=== PATIENT | female | born 1960 | race Caucasian/White ===

== ENCOUNTER 2019-03-06 08:08 | Observation (INO) ==
[2019-03-06 08:14] VITALS: BMI 25.7
--- NOTE | 2019-03-06 08:22 | DR.CP ---
HPI Time Seen Time Seen by Provider: 03/06/19 08:18 PCP Primary Care Physician: RACQUEL HPI Comment HPI Comment: Left sided CP x 24 hrs, gradual onset while at rest, ? exertional component, a/w palpitations and diaphoresis sharp in quality, radiating to jaw yesterday. Non pleuritic. ? worse w/ supine body position. No relief w/ motrin at home. + SOB No n/v. Complaint Chief Complaint:: PT. C/O CHEST PAIN THAT BEGAN YESTERDAY. PAIN HAS BEEN CONSTANT. PT HAS BEEN TAKING MOTRIN AND OTHER MEDICATION TO TRY AND GET RELIEF. PT. DESCRIBES THE PAIN SHARP AND YESTERDAY THE PAIN RADIATED TO HER LEFT JAW. Source History Provided: Patient Mode of Arrival Mode of Arrival: Ambulatory Timing Onset of Chief Complaint: 03/05/19 Came on: Gradually Pain: Present Now Duration Duration: Since Onset How lon Duration: Days Location Location of Chest Pain: Left Chest Pain Radiation Location: Left Jaw Context Onset: At rest Cardiac Risk Factors: Hyperlipidemia; denies HTN, Diabetes and Cocaine PE Risk Factors: None History of: denies [place], Angina and DVT/PE Prehospital Care: Other (motrin) Quality Quality: Sharp Severity Severity: Moderate Modifying Factors Worsens: Position; denies Exertion, Breathing and Movement Impoves: Nothing Associated Signs and Symptoms Associated Signs and Symptoms: Shortness of Breath, Palpitations and Diaphoresis; denies Abdominal Pain, Nausea/Vomiting and Calf Pain/Swelling PMH PMH Past Medical History: Yes Past Medical History: Dyslipidemia Past Surgical History: Yes Surgical History: Hysterectomy Past Surgical History Comment: PARTIAL HYSTERECTOMY Family History History of Family Medical Conditions: Yes Family Medical History: Coronary Artery Disease Social History Does patient currently use any type of tobacco product: No Have you used tobacco products in the last 12 months: No Type of Tobacco Use: None Does any household member use tobacco: No Alcohol Use: None Do you use any recreational Drugs:: No Lives With: Spouse Lives Where: Home infectious screening In the last 2 months have you had wt loss of >10#?: NO Have you had fever, night sweats or hemotysis?: No Have you traveled outside the country in the last 6 months?: No Isolation: Standard ROS Review of Systems Constitutional: No Symptoms Reported Eyes: No Symptoms Reported ENTM: No Symptoms Reported Respiratoy: Short of Breath; negative Productive Cough, Dry Cough and Orthopnea Cardiovascular: Chest Pain, Palpitations and Other (diaphoresis ); negative Marvel a and Syncope Gastrointestinal/Abdominal: No Symptoms Reported Genitourinary: No Symptoms Reported Neurological: No Symptoms Reported Musculoskeletal: No Symptoms Reported Integumentary: No Symptoms Reported Hematologic/Lymphatic: No Symptoms Reported Endocrine: No Symptoms Reported Psychiatric: No Symptoms Reported All Other Systems: Reviewed and Negative PE Vitals Vitals: Temperature 97.7 F Pulse Rate 74 Respiratory Rate 18 Blood Pressure 116/75 O2 Sat by Pulse Oximetry 97 General Limitations: No Limitations General Appearance: Alert and In No Apparent Distress Head Head Exam: Normal Inspection Eyes Eye exam: Normal Appearance ENT ENT Exam: Normal Exam Chest Chest Inspection: Normal Inspection Respiratory Respiratory Exam: Normal Lung Sounds Bilat Cardiovascular Cardiovascular Exam: Regular Rate and Normal Rhythm Pulse: Normal Edema: Normal Abdominal Exam Abdominal Exam: Normal Inspection, Normal Bowel Sounds and Soft Extremities Extremities Exam: Normal Inspection Back Back Exam: Normal Inspection Neurologic Neurological Exam: Alert and Oriented X3 Psychiatric Psychiatric Exam: Normal Affect and Normal Mood Skin Skin Exam: Warm, Dry, Intact and Normal Color MDM Additional Information Additional Information Obtained From: Family Differential Diagnosis Differential Diagnosis: Angina, Aortic Dissection, Chest Wall Pain, CHF, Costochondritis, Myocardial Infarction, Pericarditis, Pneumonia and Pulmonary Embolus COURSE Treatment Treatment: 59 yo CF w/ pmh of hld presents w/ CP x 1 day. ? exertional a/w diaphoresis. EKG obtained demonstrated lateral ST segment depression/ twi. No acute ST segment elevation noted. TNI negative. Loaded w/ asa. CXR wnl. BMPO w/ evidence of enriqueta. Discussed w/ Dr Bhardwaj whom agrees to admit. Education/Counseling Education/Counseling: Patient and Family Educated On: Treatment, Diagnosis, Prognosis and Needs for Follow Up ROR Labs Reviewed Laboratory Results Reviewed?: Yes Result Diagrams: 03/06/19 08:27 03/06/19 08:27 Laboratory: WBC 10.3 X10^3/uL (3.6-10.0) H 03/06/19 08:27 RBC 4.15 X10^6/uL (3.5-5.4) 03/06/19 08:27 Hgb 12.9 g/dL (12.0-16.0) 03/06/19 08:27 Hct 39.0 % (36.0-47.0) 03/06/19: MCV 93.9 fL (80.0-100.0) 03/06/19: MCH 31.1 pg (27.0-34.0) 03/06/19: MCHC 33.2 g/dL (33.0-35.0) 03/06/19: RDW 13.7 % (11.6-16.5) 03/06/19: Plt Count 167 X10^3/uL (150.0-450.0) 03/06/19: MPV 9.5 fL (7.4-11.0) 03/06/19: Neut % (Auto) 81.4 % (42.0-75.0) H 03/06/19: Lymph % (Auto) 8.0 % (21.0-51.0) L 03/06/19: [place] % (Auto) 10.1 % (0.0-13.0) 03/06/19: Eos % (Auto) 0.2 % (0.9-2.9) L 03/06/19: Baso % (Auto) 0.3 % (0.2-1.0) 03/06/19: Neut # (Auto) 8.4 x10^3/uL (2.2-4.8) H 03/06/19: Lymph # (Auto) 0.8 X10^3/uL (1.3-2.9) L 03/06/19: [place] # (Auto) 1.0 x10^3/uL (0.3-0.8) H 03/06/19: Eos # (Auto) 0.0 x10^3/uL (0.0-0.2) 03/06/19: Baso # (Auto) 0.0 X10^3/uL (0.0-0.1) 03/06/19: Absolute Nucleated RBC 0.0 /100WBC 03/06/19: Sodium 135 mmol/L (136-145) L 03/06/19: Corrected Sodium TNP 03/06/19: Potassium 4.0 mmol/L (3.5-5.1) 03/06/19 08:27 Chloride 99 mmol/L (98-107) 03/06/19 08:27 Carbon Dioxide 25.1 mmol/L (21-32) 03/06/19 08:27 BUN 19 mg/dL (7-18) H 03/06/19 08:27 Creatinine 1.44 mg/dL (0.55-1.02) H 03/06/19 08:27 Est GFR (MDRD) Af Amer 48 (>60) L 03/06/19 08:27 Est GFR (MDRD) Non-Af 40 (>60) L 03/06/19 08:27 Glucose 108 mg/dL (65-99) H 03/06/19 08:27 Calcium 8.8 mg/dL (8.5-10.1) 03/06/19 08:27 Troponin I < 0.02 ng/mL (0-1.5) 03/06/19 08:27 XRAY XRAY Interpreted by: Self XRAY Findings: cxr w/o infiltrate, no hemo/ pneumothorax, no cmg EKG [place]: Normal Rhythm: NSR Block: IVCD Hypertrophy: None ST: Nonsp (lateral twi/ st segment depression ) Opioid Opioid Risk Tool Age (Carlitos box if 16-45): No Total: 0 Total Score Risk Category: Low Risk Copyright: [employer] predicting aberrant behaviors Diagnosis Discharge Problem: Chest pain due to CAD, ENRIQUETA (acute kidney injury)
[2019-03-06] MEDS ORDERED: ASPIRIN PO ONE (08:27)
[2019-03-06] MEDS ORDERED: ASPIRIN ONE (08:27)
[2019-03-06 08:40] LABS: BASOPHILS % (AUTO) 0.3 % (0.2-1.0); EOSINOPHILS % (AUTO) 0.2 % (0.9-2.9); HEMOGLOBIN 12.9 g/dL (12.0-16.0); LYMPHOCYTES # (AUTO) 0.8 X10^3/uL (1.3-2.9); MEAN CORPUSCULAR HEMOGLOBIN 31.1 pg (27.0-34.0); MEAN CORPUSCULAR HGB CONC 33.2 g/dL (33.0-35.0); MEAN CORPUSCULAR VOLUME 93.9 fL (80.0-100.0); MEAN PLATELET VOLUME 9.5 fL (7.4-11.0); MONOCYTES % (AUTO) 10.1 % (0.0-13.0); NEUTROPHILS # (AUTO) 8.4 x10^3/uL (2.2-4.8); NEUTROPHILS % (AUTO) 81.4 % (42.0-75.0); PLATELET COUNT 167 X10^3/uL (150.0-450.0); RED BLOOD COUNT 4.15 X10^6/uL (3.5-5.4); RED CELL DISTRIBUTION WIDTH 13.7 % (11.6-16.5); WHITE BLOOD COUNT 10.3 X10^3/uL (3.6-10.0)
[2019-03-06] MEDS ORDERED: MORPHINE SULFATE INJ 4 MG IVP ONE (08:45)
[2019-03-06] MEDS ORDERED: NS 500 ML IV 500 ML IV ONE ×2 (08:45→08:49)
[2019-03-06 08:48] LABS: BLOOD UREA NITROGEN 19 mg/dL (7-18); CALCIUM 8.8 mg/dL (8.5-10.1); CARBON DIOXIDE 25.1 mmol/L (21-32); CHLORIDE 99 mmol/L (98-107); CREATININE 1.44 mg/dL (0.55-1.02); SODIUM 135 mmol/L (136-145); TROPONIN I < 0.02 ng/mL (0-1.5); eGFR NON BLACK RACES 40 (>60)
[2019-03-06] MEDS ORDERED: MORPHINE SULFATE INJ 4 MG ONE (08:50)
--- NOTE | 2019-03-06 08:51 | RAD ---
HISTORYCHEST PAINSTUDYCHEST, PA/LAT ADULTCOMPARISONNo priorsFINDINGSThe trachea is midline. The cardiac silhouette is upper normal. Small focus of atelectasis or infiltrate is present involving the right lung base. This is actually seen on the lateral view.. Remainder of lung sue are clear. No CHF, pleural fluid or pneumothorax is seen. The bony thorax is unremarkable.IMPRESSIONRight basilar focus of atelectasis or infiltrate.Electronically signed by: ELYSIA MARINO (Mar 06, 2019 08:50:44)
[2019-03-06] MEDS ORDERED: NITROSTAT SL PRN (09:24)
[2019-03-06 09:56] LABS: CKMB % 1.9 % (<4); CREATINE KINASE 54 Units/L (26-192); CREATINE KINASE MB < 1.0 ng/mL (0-4.0); TROPONIN I < 0.02 ng/mL (0-1.5)
[2019-03-06] MEDS: NS 1000 ML 1,000 ML IV SCH ×3 (10:47→17:59)
[2019-03-06 12:50] LABS: BILIRUBIN,URINE NEGATIVE (NEGATIVE); BLOOD/HEMOGLOBIN,URINE NEGATIVE (NEGATIVE); GLUCOSE, URINE NEGATIVE (NEGATIVE); KETONES,URINE NEGATIVE (NEGATIVE); LEUKOCYTE ESTERASE ,URINE NEGATIVE (NEGATIVE); NITRITES,URINE NEGATIVE (NEGATIVE); PROTEIN,URINE NEGATIVE (NEGATIVE); UROBILINOGEN,URINE NORMAL (NORMAL)
[2019-03-06 12:51] LABS: APPEARANCE,URINE CLEAR (CLEAR); COLOR,URINE STRAW (YELLOW)
[2019-03-06] MEDS ORDERED: PREVNAR 13 IM ONE (13:00)
[2019-03-06] MEDS ORDERED: AFLURIA II4 or FLUARIX II4 IM ONE (14:00)
[2019-03-06 16:26] LABS: CKMB % 2.3 % (<4); CREATINE KINASE 44 Units/L (26-192); CREATINE KINASE MB < 1.0 ng/mL (0-4.0); TROPONIN I < 0.02 ng/mL (0-1.5)
[2019-03-06] MEDS ORDERED: MORPHINE SULFATE INJ 2 MG INJ IVP PRN (18:18)
[2019-03-06] MEDS ORDERED: MILK OF MAGNESIA PO PRN (21:11)
[2019-03-06] MEDS ORDERED: COLACE CAP 100 MG PO PRN (21:11)
[2019-03-06 22:22] LABS: CKMB % 2.4 % (<4); CREATINE KINASE 42 Units/L (26-192); CREATINE KINASE MB < 1.0 ng/mL (0-4.0); TROPONIN I < 0.02 ng/mL (0-1.5)
[2019-03-07 06:06] LABS: CHOL/HDL RATIO 2.9 (0.0-5.0)
[2019-03-07] MEDS: PROTONIX INJ 40 MG VIAL IVP SCH (08:17)
[2019-03-07 08:50] LABS: BASOPHILS # (AUTO) 0.1 X10^3/uL (0.0-0.1); BASOPHILS % (AUTO) 1.5 % (0.2-1.0); EOSINOPHILS # (AUTO) 0.1 x10^3/uL (0.0-0.2); EOSINOPHILS % (AUTO) 1.6 % (0.9-2.9); HEMOGLOBIN 12.5 g/dL (12.0-16.0); LYMPHOCYTES # (AUTO) 1.4 X10^3/uL (1.3-2.9); LYMPHOCYTES % (AUTO) 17.2 % (21.0-51.0); MEAN CORPUSCULAR HEMOGLOBIN 31.1 pg (27.0-34.0); MEAN CORPUSCULAR HGB CONC 32.9 g/dL (33.0-35.0); MEAN CORPUSCULAR VOLUME 94.7 fL (80.0-100.0); MEAN PLATELET VOLUME 10.5 fL (7.4-11.0); MONOCYTES # (AUTO) 0.7 x10^3/uL (0.3-0.8); MONOCYTES % (AUTO) 9.3 % (0.0-13.0); NEUTROPHILS # (AUTO) 5.6 x10^3/uL (2.2-4.8); NEUTROPHILS % (AUTO) 70.4 % (42.0-75.0); PLATELET COUNT 170 X10^3/uL (150.0-450.0); RED BLOOD COUNT 4.02 X10^6/uL (3.5-5.4); RED CELL DISTRIBUTION WIDTH 13.9 % (11.6-16.5); WHITE BLOOD COUNT 7.9 X10^3/uL (3.6-10.0)
[2019-03-07 08:57] LABS: ALANINE AMINOTRANSFERASE 16 Units/L (12-78); ALBUMIN 2.7 g/dL (3.4-5.0); ALKALINE PHOSPHATASE 95 Units/L (46-116); ASPARTATE AMINO TRANSFERASE 14 Units/L (15-37); BLOOD UREA NITROGEN 9 mg/dL (7-18); CALCIUM 8.5 mg/dL (8.5-10.1); CARBON DIOXIDE 25.9 mmol/L (21-32); CHLORIDE 104 mmol/L (98-107); COR CA(FOR HYPOALB) 9.5 mg/dL (8.5-10.1); CREATININE 0.95 mg/dL (0.55-1.02); SODIUM 140 mmol/L (136-145); eGFR NON BLACK RACES > 60 (>60)
--- NOTE | 2019-03-07 09:00 | DR.H&P ---
H&P - History & Physical for Day of: H&P Date: 03/06/19 - Chief Complaint Chief Complaint: CHEST PAIN, SOB, DIAPHORESIS - History of Present Illness History of Present Illness: IS A 59 YEAR OLD PATIENT OF OURS WHO PRESENTED TO THE ER WITH COMPLAINTS OF LEFT SIDED CHEST PAIN FOR THE PAST 24 HOURS. SHE REPORTS THAT PAIN HAS BEEN CONSTANT AND RADIATES TO THE LEFT JAW. IT IS CHARACTERIZED SHARP AND IS RATED 8/10. ASSOCIATED SYMPTOMS INCLUDE PALPITATIONS, DIAPHORESIS, AND SHORNESS OF BREATH. SHE REPORTS TAKING IBUPROFEN AT HOME WITHOUT IMPROVEMENT IN SYMPTOMS. ON ARRIVAL, VITALS WERE 97.7-76-20-97%-98/53. LABS WERE OBTAINED. ABNORMAL LAB VALUES INCLUDE THE FOLLOWING: WBC 10.3, SODIUM 135, BUN 19, CREATININE 1.44, GLUCOSE 108, HDL 64. CARDIAC ENZYMES WITHIN NORMAL LIMITS. URINALYSIS IS UNREMARKABLE. CHEST XRAY OBTAINED AND REVEALED: RIGHT BASILAR FOCUS OF ATELECTASIS OR INFILTRATE. EKG REVEALED: SINUS RHYTHM WITH HR 71. SHE WAS GIVEN A NORMAL SALINE BOLUS, MORPHINE 4MG IV X 1, ASPIRIN 325MG PO X 1. SHE WAS ADMITTED FOR CHEST PAIN, RULE OUT AMI AND ACUTE KIDNEY INJURY. SHE WAS STARTED ON NORMAL SALINE AT 150ML/HR, PROTONIX 40MG IV DAILY, NITROSTAT 0.4MG IV Q5M PRN, MORPHINE 2-4MG IV Q4H PRN, MOM 30ML Q12H, AND COLACE 200MG PO Q12H. WE WILL FOLLOW UP WITH AM LABS, SERIAL CARDIAC ENZYMES AND EKGS, AND CONTINUE TO MONITOR. - Past Medical History Past Medical History: Dyslipidemia - Past Surgical History Surgical History: SORTER PACKER Surgery - Family History Family Medical History: ID, Coronary Artery Disease - Social History Does patient currently use any type of tobacco product: Yes Have you used tobacco products in the last 12 months: Yes Type of Tobacco Use: Cigarettes How many years tobacco product used: 45 Does any household member use tobacco: Yes Alcohol Use: Occasionally Drug Use: None Prescription drug monitoring program results: PDMP was not reviewed - Medications Home Medications: doxycycline Allergy (Verified 03/06/19 08:15) Penicillins Allergy (Verified 03/06/19 08:15) CONTINUE taking the following medications clonazepam 1 mg PO HS 03/06/19 [History] conjugated estrogens [Premarin] 1.25 mg PO DAILY 03/06/19 [History] meloxicam 15 mg PO DAILY 03/06/19 [History] sertraline 100 mg PO HS 03/06/19 [History] simvastatin 40 mg PO HS 03/06/19 [History] - Review of Systems Constitutional: Weakness Eyes: No Symptoms Reported ENT: No Symptoms Reported Respiratory: See HPI, Shortness of Breath Cardiovascular: Chest Pain, Palpitations Gastrointestinal: No Symptoms Reported Genitourinary: No Symptoms Reported Musculoskeletal: No Symptoms Reported Skin: No Symptoms Reported Neurological: Weakness - Physical Exam Vital Signs: Temperature 98.2 F Pulse Rate [Apical] 80 Pulse Rate 74 Respiratory Rate 20 Blood Pressure [Left Arm] 90/52 Blood Pressure 105/61 O2 Sat by Pulse Oximetry 97 Oriented: Normal Eyes: Normal Ear: Normal Nose: Normal Throat: Normal Respiratory: Diminished Throughout Cardiovascular: Normal. negative: S3, S4, Murmur : Normal Auscultation: Bowel Sounds: Normal Palpation: Normal Tenderness: Normal Skin: Normal Musculoskeletal: Normal Psychiatric: Normal Mood Description: Calm Affect: Normal Speech Pattern: Clear - Assessment/Plan (1) Chest pain, rule out acute myocardial infarction Status: Acute Plan: SERIAL CARDIAC ENZYMES AND EKGS, NITROSTAT PRN, MORPHINE PRN, CONTINUE TO MONITOR (2) ENRIQUETA (acute kidney injury) Status: Acute Plan: NORMAL SALINE AT 150ML/HR, CONTINUE TO MONITOR - Allergies Allergies/Adverse Reactions: Allergies Allergy/AdvReac Type Severity Reaction Status Date / Time doxycycline Allergy Verified 03/06/19 08:15 Penicillins Allergy Verified 03/06/19 08:15
[2019-03-07] MEDS: LOVENOX INJ 40 MG SYR SC SCH (09:49)
--- NOTE | 2019-03-07 10:54 | PCM.PROG ---
Progress Note - Progress Note for Day of Date of Exam: 03/07/19 - Subjective Subjective: WAS ADMITTED FOR CHEST PAIN, RULE OUT ACUTE ID AND ACUTE KIDNEY INJURY. TODAY, SHE IS ALERT AND ORIENTED, LYING IN BED ON MORNING ROUNDS. SHE CONTINUES WITH INTERMITTENT CHEST PAIN, BUT REPORTS SLIGHT IMPROVEMENT SINCE ADMISSION. ON EXAMINATION, HEART IS REGULAR IN RATE AND RHYTHM. BILATERAL LUNGS ARE NOTED WITH DIMINISHED LUNG SOUNDS THROUGHOUT. ABDOMEN IS ROUND, SOFT, AND NON-TENDER WITH NORMAL BOWEL SOUNDS NOTED IN ALL QUADRANTS. HER VITALS THIS MORNING ARE: 98.0-79-20-97%-133/73. LABS WERE OBTAINED. ABNORMAL LAB VALUES INCLUDE THE FOLLOWING: AST 14, ALBUMIN 2.7. CARDIAC ENZYMES WITHIN NORMAL LIMITS. NO CHANGES NOTED TO EKGS. TODAY, WE WILL OBTAIN AN ECHO, CAROTID DOPPLER , AND A CHEST CTA. WE WILL RESUME HER HOME MEDICATIONS AND CONTINUE WITH CURRENT PLAN OF CARE. WE PLAN TO FOLLOW UP WITH AM LABS AND CONTINUE TO MONITOR. - Past Medical Family Social History Past Med/Fam/Surg Hx: No changes since H&P Allergies: Allergies doxycycline Allergy (Verified 03/06/19 08:15) Penicillins Allergy (Verified 03/06/19 08:15) - Review of Systems ROS: No change since H&P - Vital Signs and I&O's Vital Signs: Temperature 98.0 F Pulse Rate [Apical] 79 Pulse Rate 74 Respiratory Rate 20 Blood Pressure [Left Arm] 133/73 Blood Pressure 105/61 O2 Sat by Pulse Oximetry 97 Intake and Output: Intake & Output 03/04/19 03/05/19 03/06/19 03/07/19 11:59 11:59 11:59 11:59 Intake Total 1650 / 1650 Balance 1650 / 1650 - Physical Exam Oriented: Normal Eyes: Normal Ear: Normal Nose: Normal Throat: Normal Respiratory: Diminished Cardiovascular: Normal. negative: S3, S4, Murmur : Normal Auscultation: Bowel Sounds: Normal Palpation: Normal Tenderness: Normal Skin: Normal Musculoskeletal: Normal Psychiatric: Normal Mood Description: Calm Affect: Normal Speech Pattern: Clear - Laboratory and Diagnostics Result Diagrams: 03/07/19 05:24 03/07/19 05:24 Labs: Laboratory WBC 7.9 X10^3/uL (3.6-10.0) 03/07/19 05:24 RBC 4.02 X10^6/uL (3.5-5.4) 03/07/19 05:24 Hgb 12.5 g/dL (12.0-16.0) 03/07/19 05:24 Hct 38.0 % (36.0-47.0) 03/07/19 05:24 MCV 94.7 fL (80.0-100.0) 03/07/19 05:24 MCH 31.1 pg (27.0-34.0) 03/07/19 05:24 MCHC 32.9 g/dL (33.0-35.0) L 03/07/19 05:24 RDW 13.9 % (11.6-16.5) 03/07/19 05:24 Plt Count 170 X10^3/uL (150.0-450.0) 03/07/19 05:24 MPV 10.5 fL (7.4-11.0) 03/07/19 05:24 Neut % (Auto) 70.4 % (42.0-75.0) 03/07/19 05:24 Lymph % (Auto) 17.2 % (21.0-51.0) L 03/07/19 05:24 [place] % (Auto) 9.3 % (0.0-13.0) 03/07/19 05:24 Eos % (Auto) 1.6 % (0.9-2.9) 03/07/19 05:24 Baso % (Auto) 1.5 % (0.2-1.0) H 03/07/19 05:24 Neut # (Auto) 5.6 x10^3/uL (2.2-4.8) H 03/07/19 05:24 Lymph # (Auto) 1.4 X10^3/uL (1.3-2.9) 03/07/19 05:24 [place] # (Auto) 0.7 x10^3/uL (0.3-0.8) 03/07/19 05:24 Eos # (Auto) 0.1 x10^3/uL (0.0-0.2) 03/07/19 05:24 Baso # (Auto) 0.1 X10^3/uL (0.0-0.1) 03/07/19 05:24 Absolute Nucleated RBC 0.0 /100WBC 03/07/19 05:24 Sodium 140 mmol/L (136-145) 03/07/19 05:24 Corrected Sodium TNP 03/07/19 05:24 Potassium 3.6 mmol/L (3.5-5.1) 03/07/19 05:24 Chloride 104 mmol/L (98-107) 03/07/19 05:24 Carbon Dioxide 25.9 mmol/L (21-32) 03/07/19 05:24 BUN 9 mg/dL (7-18) 03/07/19 05:24 Creatinine 0.95 mg/dL (0.55-1.02) 03/07/19 05:24 Est GFR (MDRD) Af Amer > 60 (>60) 03/07/19 05:24 Est GFR (MDRD) Non-Af > 60 (>60) 03/07/19 05:24 Glucose 90 mg/dL (65-99) 03/07/19 05:24 Calcium 8.5 mg/dL (8.5-10.1) 03/07/19 05:24 Corrected Calcium 9.5 mg/dL (8.5-10.1) 03/07/19 05:24 Total Bilirubin 0.20 mg/dL (0.2-1.0) 03/07/19 05:24 AST 14 Units/L (15-37) L 03/07/19 05:24 ALT 16 Units/L (12-78) 03/07/19 05:24 Alkaline Phosphatase 95 Units/L (46-116) 03/07/19 05:24 Creatine Kinase 42 Units/L (26-192) 03/06/19 21:30 CK-MB (CK-2) < 1.0 ng/mL (0-4.0) 03/06/19 21:30 CK/CKMB % Calc 2.4 % (<4) 03/06/19 21:30 Troponin I < 0.02 ng/mL (0-1.5) 03/06/19 21:30 Total Protein 7.0 g/dL (6.4-8.2) 03/07/19 05:24 Albumin 2.7 g/dL (3.4-5.0) L 03/07/19 05:24 Globulin 4.3 g/dL (2.5-4.5) 03/07/19 05:24 Albumin/Globulin Ratio 0.6 Ratio (1.1-2.1) L 03/07/19 05:24 Triglycerides 125 mg/dL (0-150) 03/07/19 05:24 Cholesterol 186 mg/dL (0-200) 03/07/19 05:24 LDL Cholesterol, Calc 97 mg/dL (0-100) 03/07/19 05:24 HDL Cholesterol 64 mg/dL (40-60) H 03/07/19 05:24 Cholesterol/HDL Ratio 2.9 (0.0-5.0) 03/07/19 05:24 Specimen Type Clean catch urine 03/06/19 12:43 Urine Color Straw (YELLOW) 03/06/19 12:43 Urine Appearance Clear (CLEAR) 03/06/19 12:43 Urine pH 5.0 (5.0 - 8.0) 03/06/19 12:43 Ur Specific [place] 1.005 (1.000-1.030) 03/06/19 12:43 Urine Protein Negative (NEGATIVE) 03/06/19 12:43 Urine Glucose (UA) Negative (NEGATIVE) 03/06/19 12:43 Urine Ketones Negative (NEGATIVE) 03/06/19 12:43 Urine Occult Blood Negative (NEGATIVE) 03/06/19 12:43 Urine Nitrite Negative (NEGATIVE) 03/06/19 12:43 Urine Bilirubin Negative (NEGATIVE) 03/06/19 12:43 Urine Urobilinogen Normal (NORMAL) 03/06/19 12:43 Ur Leukocyte Esterase Negative (NEGATIVE) 03/06/19 12:43 - Plan (1) Chest pain, rule out acute myocardial infarction Status: Acute Plan: ECHO, CAROTID DOPPLER, CHEST CTA, NITROSTAT PRN, MORPHINE PRN, CONTINUE TO MONITOR (2) ENRIQUETA (acute kidney injury) Status: Resolved Plan: NORMAL SALINE AT 150ML/HR, CONTINUE TO MONITOR
--- NOTE | 2019-03-07 11:45 | CT ---
HISTORYChest pain, shortness of breathSTUDYCTA chest for pulmonary embolusTechnique: Axial post-contrast images with coronal, sagittal, and 3 dimensional maximum intensity projection images obtained in evaluated. Dose reduction procedures were used with mA/kv adjusted for body size.COMPARISONNoneFINDINGSThere is no evidence for acute pulmonary thromboembolic disease. Examination of the mediastinum demonstrated no evidence for mediastinal masses, enlarged mediastinal or enlarged hilar adenopathy, or significant aortic abnormality. No significant pleural effusions are identified. There is some pleural thickening present bilaterally. No chest wall or axillary abnormality is identified. Those portions of the upper abdominal organs visualized were within normal limits. Examination of the lung sue demonstrated no significant nodules, masses, alveolar infiltrates, areas of consolidation, peribronchial thickening, or bronchiectasis. Bilateral foci of subsegmental atelectasis identified predominantly in the lung bases.IMPRESSIONNo evidence for acute pulmonary thromboembolic diseaseBibasilar subsegmental atelectasisElectronically signed by: JUANITA MENDOSA (Mar 07, 2019 11:44:14)
--- NOTE | 2019-03-07 11:52 | RAD ---
HISTORYShortness of breathSTUDYPortable AP chestCOMPARISONYesterdayFINDINGSThere is a mild right basilar infiltrate that projects in this AP view just below the right hemidiaphragm. The left lung is clear. There is no effusion. The heart size is prominent.IMPRESSIONMinimal right basilar subsegmental atelectasisElectronically signed by: TRAMAINE PARSON (Mar 07, 2019 11:51:21)
[2019-03-07] MEDS: PREMARIN PO SCH (12:18)
--- NOTE | 2019-03-07 12:44 | VAS ---
HISTORYSYNCOPE, DIZZINESS, CAD Concern for carotid artery stenosis. [].EXAM: BILATERAL DOPPLER CAROTID ULTRASOUND EXAMTechnique: Multiple mack scale and color flow Doppler images of the right and left carotid arterial system were obtained. The vertebral arterial system was evaluated as well.Findings:Nonocclusive color flow Doppler is seen throughout the right and left carotid arterial system. There is [mild] atherosclerosis and plaque formation of the bilateral carotid bulbs and ICAs with associated intimal thickening but [without] evidence for high-grade stenosis (>70%) or occlusion of the carotid arteries. The right and left vertebral artery demonstrate antegrade flow.IMPRESSION:Elevated velocities in the right ICA in the 50-69% stenosis range.Elevated velocities in the left ICA in the 50-69% stenosis range.[Bpso-[id number]] atherosclerosis and plaque formation of the bilateral carotid bulbs and [in both] ICAs with associated carotid intimal thickening but without evidence for any additional high-grade stenosis vascular or occlusion of the carotid arteries, based on Doppler velocity criteria. Appropriate, antegrade, vertebral arterial flow.Peak right ICA velocity: [163] centimeter/seconds.Peak right CCA velocity: [75] centimeter/seconds.Peak left ICA velocity: [126] centimeter/seconds.Peak left CCA velocity: [71] centimeter/seconds.Right ICA to CCA ratio: [2.8].Left ICA to CCA ratio: [2.3].Electronically signed by: NASRA ARIAS III (Mar 07, 2019 12:42:42)
[2019-03-07] MEDS: NS 1000 ML 1,000 ML IV SCH ×2 (19:18)
[2019-03-07] MEDS ORDERED: PREVNAR 13 IM ONE (20:48)
[2019-03-07] MEDS ORDERED: ZOLOFT PO ONE (20:48)
[2019-03-07] MEDS ORDERED: AFLURIA II4 or FLUARIX II4 IM ONE (20:48)
[2019-03-07] MEDS ORDERED: KLONOPIN TAB 1 MG PO SCH (21:00)
[2019-03-07] MEDS ORDERED: ZOLOFT PO SCH (21:00)
[2019-03-07] MEDS ORDERED: ZOCOR TAB 40 MG PO SCH (21:00)
[2019-03-08] MEDS: NS 1000 ML 1,000 ML IV SCH ×2 (01:09→02:12)
[2019-03-08 05:38] VITALS: BP 128/66
[2019-03-08 06:18] LABS: BASOPHILS # (AUTO) 0.1 X10^3/uL (0.0-0.1); BASOPHILS % (AUTO) 0.7 % (0.2-1.0); EOSINOPHILS # (AUTO) 0.1 x10^3/uL (0.0-0.2); EOSINOPHILS % (AUTO) 1.7 % (0.9-2.9); HEMATOCRIT 36.3 % (36.0-47.0); HEMOGLOBIN 12.1 g/dL (12.0-16.0); LYMPHOCYTES # (AUTO) 1.4 X10^3/uL (1.3-2.9); LYMPHOCYTES % (AUTO) 17.1 % (21.0-51.0); MEAN CORPUSCULAR HEMOGLOBIN 31.5 pg (27.0-34.0); MEAN CORPUSCULAR HGB CONC 33.2 g/dL (33.0-35.0); MEAN CORPUSCULAR VOLUME 94.8 fL (80.0-100.0); MONOCYTES # (AUTO) 0.6 x10^3/uL (0.3-0.8); NEUTROPHILS # (AUTO) 5.8 x10^3/uL (2.2-4.8); NEUTROPHILS % (AUTO) 73.5 % (42.0-75.0); PLATELET COUNT 177 X10^3/uL (150.0-450.0); RED BLOOD COUNT 3.83 X10^6/uL (3.5-5.4); RED CELL DISTRIBUTION WIDTH 13.4 % (11.6-16.5); WHITE BLOOD COUNT 7.9 X10^3/uL (3.6-10.0)
--- NOTE | 2019-03-08 06:28 | RAD ---
HISTORYShortness of breathSTUDYCHEST, 1 [id number] heart is within normal limits in size. The sh[place] are normal. The lungs are free of acute alveolar infiltrates. Right lung base is now clear. There is subsegmental atelectasis in the left lung base. No pleural effusions are identified. Bony thorax is unremarkable.IMPRESSIONRight lung base now clearSubsegmental atelectasis left lung baseElectronically signed by: JUANITA MENDOSA (Mar 08, 2019 06:27:19)
[2019-03-08 06:49] LABS: ALANINE AMINOTRANSFERASE 14 Units/L (12-78); ALBUMIN 2.3 g/dL (3.4-5.0); ALKALINE PHOSPHATASE 82 Units/L (46-116); ASPARTATE AMINO TRANSFERASE 14 Units/L (15-37); BLOOD UREA NITROGEN 9 mg/dL (7-18); CALCIUM 7.7 mg/dL (8.5-10.1); CARBON DIOXIDE 26.9 mmol/L (21-32); CHLORIDE 108 mmol/L (98-107); COR CA(FOR HYPOALB) 9.1 mg/dL (8.5-10.1); CREATININE 0.88 mg/dL (0.55-1.02); SODIUM 141 mmol/L (136-145); TOTAL PROTEIN 6.3 g/dL (6.4-8.2); eGFR NON BLACK RACES > 60 (>60)
[2019-03-08] MEDS: PREMARIN PO SCH (09:26)
[2019-03-08] MEDS: LOVENOX INJ 40 MG SYR SC SCH (09:26)
[2019-03-08] MEDS: PROTONIX INJ 40 MG VIAL IVP SCH (09:26)
== END 2019-03-08 12:15 | disposition home or self-care (01) ==
LOC: MED/SURG 08:10 → ER 08:10 → MED/SURG 10:00
PROVIDERS: ADMIT Internal Medicine; ATTEND Internal Medicine
DX: Z23 Encounter for immunization; R07.89 Other chest pain; R68.84 Jaw pain; R94.4 Abnormal results of kidney function studies; R06.02 Shortness of breath; J98.11 Atelectasis; N17.8 Other acute kidney failure; R94.31 Abnormal electrocardiogram [ECG] [EKG]; E78.49 Other hyperlipidemia
CPT/HCPCS: 36415; 71010; 71020; 71045; 71046; 71275; 80048; 80053; 80061; 81003; 82550; 82553; 84484; 85025; 90670; 90674; 90686; 93005; 93306; 93880; 94760; 96365; 96374; 99284; A4216; A4222; C9113; G0378; J1650; J2270; J7030; J7040